=== PATIENT | female | born 1960 | race Caucasian/White ===

== ENCOUNTER 2021-06-05 19:55 | Emergency (ER) | payer MEDICARE ==
[~2021-06-05] VITALS: Ht 154.9 cm; Wt 43.2 kg
[2021-06-05 20:06] VITALS: BP 137/87
--- NOTE | 2021-06-05 20:55 | NUR ---
Pt medicated with home med Sinnemet 20-100 1 tab. Etacapon 200 mg x 2 tabs.
[2021-06-05] MEDS ORDERED: ketorolac tromethamine 15mg/ml inj. IM ONE (21:00)
[2021-06-05 21:10] LABS: CLARITY,URINE SLIGHTLY CLOUDY (Clear); COLOR,URINE YELLOW (Yellow); GLUCOSE, URINE NEGATIVE (Neg); KETONES,URINE TRACE mg/dl (Neg); LEUKOCYTE ESTERASE ,URINE NEGATIVE (Neg); NITRITES, URINE NEGATIVE (Neg); OCCULT BLOOD,URINE NEGATIVE (Neg); PH,URINE 7.5 (4.8-8.0); PROTEIN,URINE NEGATIVE (Neg); UROBILINOGEN,URINE 0.2 E.U/dL (0.2-1.0)
[2021-06-05 21:16] LABS: UA COLLECTION TYPE CLN CATCH MIDSTREAM
[2021-06-05 21:17] LABS: AMORPHOUS PHOSPHATES 2+; BACTERIA,URINE FEW /HPF (Neg); RBC,URINE NONE SEEN /HPF (0-2); SQUAMOUS EPITHELIAL CELL,UR FEW /LPF (FEW); WBC,URINE NONE SEEN /HPF (0-4)
[2021-06-05] MEDS ORDERED: LORazepam 2 mg/ml vial IV ONE (22:20)
[2021-06-06] MEDS ORDERED: HYDR-3965 PO (00:51)
== END 2021-06-06 01:31 | disposition home or self-care (01) ==
LOC: ER 19:56
DX: S22.31XA Fracture of one rib, right side, initial encounter for closed fracture (principal); R10.84 Generalized abdominal pain; M54.89 Other dorsalgia; Z72.89 Other problems related to lifestyle; Z79.899 Other long term (current) drug therapy; W19.XXXA Unspecified fall, initial encounter; Y93.89 Activity, other specified; Y92.89 Other specified places as the place of occurrence of the external cause; Y99.8 Other external cause status
CPT/HCPCS: 71250; 81001; 96372; 96374; 99284; J1885; J2060

== ENCOUNTER 2023-06-26 10:43 | Emergency (ER) | payer MEDICARE ==
[~2023-06-26] VITALS: Ht 160 cm; Wt 53.2 kg
[2023-06-26 11:51] LABS: BASOPHILS % (AUTO) 0.1 % (0-1); EOSINOPHILS % (AUTO) 0.4 % (0-6); HEMATOCRIT 35.7 % (35.0-45.0); LYMPHOCYTES # (AUTO) 0.6 X10'3 (1.1-4.8); LYMPHOCYTES % (AUTO) 8.8 % (21-51); MEAN CORPUSCULAR HEMOGLOBIN 32.7 PG (27.0-31.0); MEAN CORPUSCULAR HGB CONC 33.5 g/dL (33.0-36.5); MEAN CORPUSCULAR VOLUME 97.5 FL (78-98); MEAN PLATELET VOLUME 9.5 FL (7.4-10.4); MONOCYTES # (AUTO) 0.9 X10'3 (0-0.9); NEUTROPHILS # (AUTO) 5.3 X10'3 (1.8-7.7); NEUTROPHILS % (AUTO) 77.7 % (42-75); PLATELET COUNT 332 X10'3 (140-440); RED BLOOD COUNT 3.66 X10'6 (4.20-5.60); RED CELL DISTRIBUTION WIDTH 16.1 % (11.5-14.5); WHITE BLOOD COUNT 6.8 X10'3 (4.5-11.0)
[2023-06-26 12:03] LABS: ALANINE AMINOTRANSFERASE 7 U/L (12-78); ALBUMIN 2.3 G/DL (3.4-5.0); ALBUMIN/GLOBULIN RATIO 0.6 (1.1-1.5); ALKALINE PHOSPHATASE 164 IU/L (46-116); ANION GAP 5 (8-16); ASPARTATE AMINO TRANSFERASE 23 U/L (10-37); BILIRUBIN,TOTAL 0.5 MG/DL (0.1-1.0); BLOOD UREA NITROGEN 14 MG/DL (7-18); BUN/CREATININE RATIO 15.1 (10.0-20.0); CALCIUM 8.7 MG/DL (8.5-10.1); CHLORIDE 98 MMOL/L (99-107); CREATININE 0.93 MG/DL (0.40-0.90); GLUCOSE 96 MG/DL (70-104); SODIUM 135 MMOL/L (135-145); TOTAL CARBON DIOXIDE 31.9 MMOL/L (24-32); TOTAL PROTEIN 6.4 G/DL (6.4-8.2); eCRCL 51 ML/MIN; eGFR 61 ML/MIN
[2023-06-26 12:08] LABS: POTASSIUM 2.9 MMOL/L (3.5-5.1)
--- NOTE | 2023-06-26 12:11 | NUR ---
PT K 2.9. RN NOTIFIED DR DEGROOT AND SHADOW RN.
[2023-06-26] MEDS ORDERED: LIDOcaine Viscous 15ml cup MM PRN (12:45)
[2023-06-26] MEDS ORDERED: FLUOXETINE (12:45)
[2023-06-26] MEDS ORDERED: CARBIDOPA LEVADOPA (12:45)
[2023-06-26] MEDS ORDERED: [UNRECOGNIZED DRUG - OTHER] (12:45)
[2023-06-26] MEDS ORDERED: MELO-102 (12:45)
[2023-06-26] MEDS ORDERED: normal saline 1000ML IV soln IVB ONE (12:50)
[2023-06-26] MEDS ORDERED: CefTRIAXone/D5W-Rocephin 1gm 50 ML IV ONE (13:50)
[2023-06-26] MEDS ORDERED: LIDO15SO3 (13:56)
[2023-06-26] MEDS ORDERED: POTA-207 PO (13:56)
[2023-06-26] MEDS ORDERED: CEPH-585 PO (13:56)
[2023-06-26 14:00] VITALS: BP 131/67; PULSE 71; RESP 18; TEMP 98.5; O2SAT 99
[2023-06-26] MEDS ORDERED: potassium chloride 10mEq ER tablet PO STA (14:01)
[2023-06-26 15:20] LABS: BILIRUBIN,URINE NEGATIVE (Neg); CLARITY,URINE CLOUDY (Clear); COLOR,URINE YELLOW (Yellow); GLUCOSE, URINE NEGATIVE (Neg); KETONES,URINE TRACE mg/dl (Neg); LEUKOCYTE ESTERASE ,URINE TRACE (Neg); NITRITES, URINE POSITIVE (Neg); OCCULT BLOOD,URINE SMALL (Neg); PROTEIN,URINE 30 mg/dl (Neg)
[2023-06-26 15:23] LABS: UA COLLECTION TYPE CLN CATCH MIDSTREAM
[2023-06-26 15:27] LABS: BACTERIA,URINE 4+ /HPF (Neg); MUCUS STRANDS MODERATE /LPF (Neg); SQUAMOUS EPITHELIAL CELL,UR MODERATE /LPF (FEW); WBC CLUMPS,URINE MODERATE /HPF (NEGATIVE); WBC,URINE 30-50 /HPF (0-4)
== END 2023-06-26 15:00 | disposition home or self-care (01) ==
LOC: ER 10:43
DX: K12.1 Other forms of stomatitis (principal); N39.0 Urinary tract infection, site not specified; E87.6 Hypokalemia; R49.0 Dysphonia; Z79.1 Long term (current) use of non-steroidal anti-inflammatories (NSAID); Z79.899 Other long term (current) drug therapy
CPT/HCPCS: 36415; 80053; 81001; 84145; 85025; 87077; 87088; 87186; 96374; 99284; J0696; J7030